=== PATIENT | male | born 1965 | race Caucasian/White ===

== ENCOUNTER 2016-11-16 09:13 | Emergency (ER) | payer OTHER ==
[~2016-11-16] VITALS: Ht 172.7 cm; Wt 87.3 kg
[~2016-11-16 09:13] MED LIST: ASPI-496 PO; CART1TAB4 PO; ENAL20TA PO; HYDR25TA6 PO; KRIL1CAP19 PO; LABE100T3 PO; LUTE1CAP5 PO
[2016-11-16 11:27] LABS: BLOOD UREA NITROGEN 15 mg/dL (7-18)
[2016-11-16 13:08] VITALS: BP 116/72
== END 2016-11-16 13:09 | disposition home or self-care (01) ==
LOC: ED 11:03
DX: T81.31XA Disruption of external operation (surgical) wound, not elsewhere classified, initial encounter (principal)
CPT/HCPCS: 36415; 80048; 82040; 85025; 87070; 87205; 99284

== ENCOUNTER 2016-11-24 13:42 | Inpatient (IN) | payer OTHER ==
[~2016-11-24] VITALS: Ht 172.7 cm; Wt 70.3 kg
[2016-11-24] MEDS ORDERED: SODIUM CHLORIDE FLUSH 10ML SYR IVF ONE (14:30)
[2016-11-24] MEDS ORDERED: SODIUM CHLORIDE 0.9% 1,000ML IVBOLUS ONE ×3 (14:30→22:30)
[2016-11-24 14:40] LABS: BLOOD UREA NITROGEN 81 mg/dL (7-18)
[2016-11-24 14:44] LABS: ASPARTATE AMINO TRANSFERASE 65 U/L (15-37)
[2016-11-24] MEDS ORDERED: SODIUM CHLORIDE 0.9% 1,000 ML IV ONE (16:15)
[2016-11-24] MEDS ORDERED: SODIUM CHLORIDE FLUSH 10ML SYR IVF PRN (16:30)
[2016-11-24] MEDS ORDERED: HYDROcodone/APAP 5/325 TABLET PO PRN (17:00)
[2016-11-24] MEDS ORDERED: PHARMACY MAY ADJ FOR RENAL FX MC PRN (17:00)
[2016-11-24] MEDS ORDERED: ONDANSETRON 2MG/ML, 2ML IVP PRN (17:00)
[2016-11-24 18:05] VITALS: BP 108/68
[2016-11-24 18:52] VITALS: BP 100/68
[2016-11-24] MEDS: SODIUM CHLORIDE 0.9% 1,000 ML IV SCH (20:43)
[2016-11-24] MEDS: PIPERACILLIN/TAZO/PMX 2.25GM 50 ML IV SCH (20:43)
[2016-11-24 22:53] VITALS: BP 90/56
[2016-11-24 23:10] VITALS: BP 91/59
[2016-11-25 01:19] VITALS: BP 91/60
[2016-11-25 03:50] VITALS: BP 93/61
[2016-11-25 05:31] LABS: BLOOD UREA NITROGEN 81 mg/dL (7-18)
[2016-11-25] MEDS: SODIUM CHLORIDE 0.9% 1,000 ML IV SCH ×3 (06:17→23:31)
[2016-11-25 06:40] VITALS: BP 91/60
[2016-11-25] MEDS: FAMOTIDINE 20 MG/2 ML IV SCH (10:40)
[2016-11-25] MEDS: PIPERACILLIN/TAZO/PMX 2.25GM 50 ML IV SCH ×2 (10:40→20:50)
[2016-11-25 12:32] VITALS: BP 97/64
[2016-11-25] MEDS: OCTREOTIDE 100MCG/ML, 1ML (0.1MG/ML) SQ SCH ×2 (15:56→23:31)
[2016-11-25] MEDS ORDERED: PHARMACY MAY ADJ FOR RENAL FX MC PRN (19:30)
[2016-11-25] MEDS ORDERED: PIPERACILLIN/TAZO/PMX 3.375GM 50 ML IV SCH (19:30)
[2016-11-25 20:14] VITALS: BP 105/72
[2016-11-25] MEDS: ALBUMIN HUMAN 25% 100 ML IV SCH (20:30)
[2016-11-25] MEDS: HEPARIN 5,000 UNITS/ML, 1ML SQ SCH (20:50)
[2016-11-26 02:15] VITALS: BP 98/68
[2016-11-26] MEDS: HEPARIN 5,000 UNITS/ML, 1ML SQ SCH ×3 (03:35→20:11)
[2016-11-26] MEDS: PIPERACILLIN/TAZO/PMX 2.25GM 50 ML IV SCH ×4 (03:43→22:24)
[2016-11-26] MEDS: ALBUMIN HUMAN 25% 100 ML IV SCH ×5 (04:54→20:11)
[2016-11-26 07:30] LABS: ASPARTATE AMINO TRANSFERASE 48 U/L (15-37); BLOOD UREA NITROGEN 85 mg/dL (7-18)
[2016-11-26 07:36] VITALS: BP 101/65
[2016-11-26] MEDS: FAMOTIDINE 20 MG/2 ML IV SCH (08:04)
[2016-11-26] MEDS: OCTREOTIDE 100MCG/ML, 1ML (0.1MG/ML) SQ SCH (08:04)
[2016-11-26] MEDS ORDERED: MIDAZOLAM 1 MG/ML, 5ML ONE (09:34)
[2016-11-26] MEDS ORDERED: FENTANYL PF 100 MCG/2ML ONE (09:34)
[2016-11-26] MEDS ORDERED: FLUMAZENIL 0.1 MG/1 ML, 5ML ONE (09:35)
[2016-11-26] MEDS ORDERED: NALOXONE 1 MG/ML, 2ML ONE (09:35)
[2016-11-26] MEDS ORDERED: LIDOCAINE 1%, 20ML ONE (09:49)
[2016-11-26 11:53] LABS: CYTOLOGY BODY FLUID RECD INTO PATHOLOGY; CYTOLOGY BODY FLUID SOURCE ASCITES FLUID
[2016-11-26] MEDS: SODIUM CHLORIDE 0.9% 1,000 ML IV SCH (12:47)
[2016-11-26] MEDS: OCTREOTIDE 500 MCG in SODIUM CHLORIDE 0.9% 249 ML IV SCH ×2 (12:48→20:10)
[2016-11-26 14:23] VITALS: BP 122/81
[2016-11-26 18:45] VITALS: BP 128/70
[2016-11-27 01:56] VITALS: BP 126/61
[2016-11-27] MEDS: ALBUMIN HUMAN 25% 100 ML IV SCH ×6 (01:59→20:29)
[2016-11-27] MEDS: SODIUM CHLORIDE 0.9% 1,000 ML IV SCH ×3 (02:00→13:26)
[2016-11-27] MEDS: PIPERACILLIN/TAZO/PMX 2.25GM 50 ML IV SCH ×2 (03:43→10:41)
[2016-11-27] MEDS: HEPARIN 5,000 UNITS/ML, 1ML SQ SCH ×3 (05:39→20:29)
[2016-11-27] MEDS: OCTREOTIDE 500 MCG in SODIUM CHLORIDE 0.9% 249 ML IV SCH ×2 (06:32→16:01)
[2016-11-27 06:50] LABS: ASPARTATE AMINO TRANSFERASE 21 U/L (15-37); BLOOD UREA NITROGEN 59 mg/dL (7-18)
[2016-11-27 07:07] VITALS: BP 116/68
[2016-11-27 15:28] VITALS: BP 108/65
[2016-11-27 20:00] VITALS: BP 115/75
[2016-11-28] MEDS: OCTREOTIDE 500 MCG in SODIUM CHLORIDE 0.9% 249 ML IV SCH ×4 (00:20→21:57)
[2016-11-28] MEDS: SODIUM CHLORIDE 0.9% 1,000 ML IV SCH ×2 (00:52→08:00)
[2016-11-28] MEDS: ALBUMIN HUMAN 25% 100 ML IV SCH ×6 (00:52→21:40)
[2016-11-28 02:49] VITALS: BP 115/75
[2016-11-28] MEDS: HEPARIN 5,000 UNITS/ML, 1ML SQ SCH ×3 (04:58→21:40)
[2016-11-28 05:54] LABS: BLOOD UREA NITROGEN 36 mg/dL (7-18)
[2016-11-28 05:55] LABS: ASPARTATE AMINO TRANSFERASE 22 U/L (15-37)
[2016-11-28 07:32] VITALS: BP 110/72
[2016-11-28] MEDS ORDERED: POTASSIUM PHOSPHATE 44 MEQ in SODIUM CHLORIDE 0.9% 500 ML IV ONE (11:00)
[2016-11-28 14:02] VITALS: BP 116/82
[2016-11-28 19:20] VITALS: BP 118/84
[2016-11-29] MEDS: ALBUMIN HUMAN 25% 100 ML IV SCH ×2 (01:20→05:36)
[2016-11-29 03:19] VITALS: BP 111/74
[2016-11-29] MEDS: HEPARIN 5,000 UNITS/ML, 1ML SQ SCH ×3 (03:48→23:28)
[2016-11-29 05:34] LABS: BLOOD UREA NITROGEN 25 mg/dL (7-18)
[2016-11-29] MEDS: OCTREOTIDE 500 MCG in SODIUM CHLORIDE 0.9% 249 ML IV SCH ×4 (05:36→23:28)
[2016-11-29 08:09] VITALS: BP 115/86
[2016-11-29 14:48] VITALS: BP 109/80
[2016-11-29 20:16] VITALS: BP 118/86
[2016-11-29 22:05] LABS: ADENOSINE DEAMINASE PERIT FLD <1.8 U/L (0.0-7.3)
[2016-11-30 04:35] VITALS: BP 126/89
[2016-11-30 05:40] LABS: ASPARTATE AMINO TRANSFERASE 35 U/L (15-37); BLOOD UREA NITROGEN 23 mg/dL (7-18)
[2016-11-30] MEDS: OCTREOTIDE 500 MCG in SODIUM CHLORIDE 0.9% 249 ML IV SCH (06:43)
[2016-11-30 07:00] VITALS: BP 119/88
[2016-11-30] MEDS: HEPARIN 5,000 UNITS/ML, 1ML SQ SCH ×3 (09:28→23:32)
[2016-11-30] MEDS ORDERED: SODIUM PHOSPHATE 30 MMOL in SODIUM CHLORIDE 0.9% 500 ML IV ONE (09:30)
[2016-11-30] MEDS: FUROSEMIDE 20 MG TABLET PO SCH (11:40)
[2016-11-30] MEDS: SPIRONOLACTONE 50 MG TABLET PO SCH (11:40)
[2016-11-30 13:26] VITALS: BP 112/85
[2016-11-30 18:43] VITALS: BP 113/82
[2016-12-01 01:07] VITALS: BP 117/86
[2016-12-01 06:02] LABS: ASPARTATE AMINO TRANSFERASE 48 U/L (15-37); BLOOD UREA NITROGEN 24 mg/dL (7-18)
[2016-12-01] MEDS: HEPARIN 5,000 UNITS/ML, 1ML SQ SCH ×3 (07:30→23:19)
[2016-12-01] MEDS: FUROSEMIDE 20 MG TABLET PO SCH (08:18)
[2016-12-01] MEDS: SPIRONOLACTONE 50 MG TABLET PO SCH (08:18)
[2016-12-01 08:25] VITALS: BP 121/77
[2016-12-01 13:15] VITALS: BP 121/92
[2016-12-01 19:16] VITALS: BP 118/86
[2016-12-02 02:46] VITALS: BP 118/85
[2016-12-02 07:36] VITALS: BP 125/88
[2016-12-02] MEDS: HEPARIN 5,000 UNITS/ML, 1ML SQ SCH ×3 (08:12→22:37)
[2016-12-02] MEDS: SPIRONOLACTONE 50 MG TABLET PO SCH (08:12)
[2016-12-02] MEDS: FUROSEMIDE 20 MG TABLET PO SCH (08:12)
[2016-12-02 15:00] VITALS: BP 116/77
[2016-12-02 20:08] VITALS: BP 118/85
[2016-12-03 00:40] VITALS: BP 117/84
[2016-12-03 07:50] VITALS: BP 125/96
[2016-12-03] MEDS: SPIRONOLACTONE 50 MG TABLET PO SCH (09:02)
[2016-12-03] MEDS: FUROSEMIDE 20 MG TABLET PO SCH (09:03)
[2016-12-03] MEDS: HEPARIN 5,000 UNITS/ML, 1ML SQ SCH (09:03)
[2016-12-03] MEDS ORDERED: HYDR-3240 PO (10:46)
[2016-12-03] MEDS ORDERED: MULT-412 PO (10:46)
[2016-12-03] MEDS ORDERED: SPIR50TA PO (10:46)
[2016-12-03] MEDS ORDERED: FURO20TA3 PO (10:46)
== END 2016-12-03 12:50 | disposition home or self-care (01) | DRG 814 ==
LOC: ED 16:14 → EDIP 16:15 → ED 16:45 → 4EST 17:43 → 4WST 11-26 14:47 → DCLOUNGE 12-03 12:24
PROVIDERS: ADMIT Hospitalist; ATTEND Internal Medicine
PROC: 0T9030Z Drainage of Right Kidney with Drainage Device, Percutaneous Approach (ICD-10-PCS; principal; 2016-11-26)
DX: I89.8 Other specified noninfective disorders of lymphatic vessels and lymph nodes (principal); E43 Unspecified severe protein-calorie malnutrition; N17.9 Acute kidney failure, unspecified; E87.1 Hypo-osmolality and hyponatremia; C64.1 Malignant neoplasm of right kidney, except renal pelvis; L03.311 Cellulitis of abdominal wall; K76.6 Portal hypertension; I10 Essential (primary) hypertension; D75.89 Other specified diseases of blood and blood-forming organs; K80.20 Calculus of gallbladder without cholecystitis without obstruction; N30.90 Cystitis, unspecified without hematuria; Z85.528 Personal history of other malignant neoplasm of kidney; Z90.5 Acquired absence of kidney; B18.2 Chronic viral hepatitis C; Z82.49 Family history of ischemic heart disease and other diseases of the circulatory system; Z82.3 Family history of stroke; I95.9 Hypotension, unspecified; E83.39 Other disorders of phosphorus metabolism; Z68.23 Body mass index [BMI] 23.0-23.9, adult
CPT/HCPCS: 36415; 49405; 74000; 74176; 75989; 80048; 80053; 82042; 82150; 82945; 83690; 83735; 84100; 84157; 84311; 84443; 84478; 85025; 85610; 85730; 87040; 87070; 87205; 87324; 88112; 88305; 89051; 93005; 96360; 96361; 99156; 99157; C1894; J1644; J2250; J2354; J2543; J3010; J3490; P9047; C1729; C1769; J2310; J7030; J7040; J7050; S0028